=== PATIENT | male | born 1990 | race Caucasian/White ===

== ENCOUNTER → 2018-03-24 | Outpatient (REF) ==
[~2018-03-24] MED LIST: DENIES
--- NOTE | 2018-03-24 10:08 | RADIOLOGY IMAGING REPORT ---
FACILITY: [facility] PATIENT NAME: Jamison Trevizo : 1990 MR: [id number] V: [id number] EXAM DATE: ORDERING PHYSICIAN: CHRIS MALCOLM TECHNOLOGIST: Location: [facility] Patient: Jamison Trevizo : 1990 Visit/Account:[id number] Date of Sevice: 03/24/2018 CHEST SINGLE AP 03/24/2018 09:20 hours. HISTORY: Health examination of defined subpopulations. COMPARISON: 10/05/2016 and 09/22/2012. TECHNIQUE: Portable AP view of the chest. FINDINGS: Tubes/lines/hardware: None. Pulmonary: Lungs are clear. There is no pneumothorax or pleural effusion. Cardiomediastinal: Cardiac and mediastinal silhouettes are within normal limits. Bones/soft tissues: No acute osseous abnormality. The visible abdomen is normal. IMPRESSION: 1. No acute cardiopulmonary process. Report Dictated By: Elisabet Severino at 03/24/2018 10:02 AM Report E-Signed By: Elisabet Severino at 03/24/2018 10:04 AM WSN:[id number]
== END ==
LOC: RAD 09:15
PROVIDERS: ATTEND Physician Assistant Medical
DX: Z02.89 Encounter for other administrative examinations (principal)
CPT/HCPCS: 71045